=== PATIENT | female | born 1955 | race Caucasian/White ===

== ENCOUNTER 2021-04-13 15:47 | Outpatient (CLI) | payer MEDICARE, OTHER, SELFPAY ==
--- NOTE | ~2021-04-13 | MR_ITS ---
EXAMINATION: MR lumbar spine wo con DATE: 04/13/2021 16:23 INDICATION: Lumbar radiculopathy. TECHNIQUE: Magnetic resonance imaging (MRI) of the lumbar spine was performed without intravenous con trast. Sequences included sagittal T2-weighted FSE, sagittal T2-weighted FS FSE, sagittal T1-weighted FSE, and axial T2-weighted FSE. COMPARISON: None FINDINGS: There is 5 mm anterolisthesis of L4 on L5. Vertebral body heights are normal. There is conrad rely decreased disc height at L1-L5 and L5-S1 with endplate remodeling. There is hypertrophy of the l igamentum flavum at the disc levels at L1-L2, L3-L4, L4-L5, and L5-S1. The distal spinal cord signal intensity is normal. The conus medullaris is at L1. There are cysts in left kidney measuring up to 2. 4 cm. The following disc levels are specifically discussed: L1-L2: The disc does not extend beyond the endplate margin. There is severe right and moderate left f acet joint osteoarthritis. There is no neural foraminal stenosis. There is no central canal stenosis. L2-L3: The disc does not extend beyond the endplate margin. There is moderate bilateral facet joint o steoarthritis. There is no neural foraminal stenosis. There is no central canal stenosis. L3-L4: The disc is bulging. There is moderate bilateral facet joint osteoarthritis. There is mild payal ateral neural foraminal stenosis. There is no central canal stenosis. L4-L5: The disc is bulging and has an annular fissure. There is severe bilateral facet joint osteoart hritis. There is moderate bilateral neural foraminal stenosis. There is severe central canal stenosis . L5-S1: The disc is bulging and has an annular fissure. There is severe right and moderate left facet joint osteoarthritis. There is moderate bilateral neural foraminal stenosis. There is mild central ca nal stenosis. IMPRESSION: 1. Severe lower lumbar spondylosis. Reviewed, dictated and finalized at location A.
== END 2021-04-13 15:48 | disposition home or self-care (01) ==
PROVIDERS: PCP Family Medicine; Visit Provider Nurse Practitioner Adult Health
DX: M54.16 Radiculopathy, lumbar region (principal); M47.816 Spondylosis without myelopathy or radiculopathy, lumbar region
CPT/HCPCS: 72148

== ENCOUNTER 2022-04-30 16:52 | Outpatient (CLI) | payer MEDICARE, SELFPAY ==
--- NOTE | ~2022-04-30 | US_ITS ---
EXAMINATION:US venous doppler LE LT INDICATION:Leg edema and redness TECHNIQUE: Multiple grayscale, color flow and Doppler images of the left lower extremity deep venous systems were obtained and reviewed. COMPARISON:No prior studies FINDINGS: The common femoral, superficial femoral and popliteal veins demonstrate normal respiratory variation, augmentation and compressibility. Color flow is also seen within the posterior tibial, pe roneal, greater saphenous and profunda veins. IMPRESSION: 1: No lower extremity deep venous thrombosis. Reviewed, dictated and finalized at location A.
== END 2022-04-30 16:53 | disposition home or self-care (01) ==
PROVIDERS: PCP Family Medicine; Visit Provider Physician Assistant Medical
DX: M79.89 Other specified soft tissue disorders (principal)
CPT/HCPCS: 93971

== ENCOUNTER 2022-11-11 12:04 | Outpatient (CLI) | payer MEDICARE, SELFPAY ==
--- NOTE | ~2022-11-11 | XR_ITS ---
Left foot Technique: AP, oblique, and lateral views were obtained. Clinical History: Pain Findings: There is a traumatic, oblique, minimally displaced fracture of the distal fifth metatarsal shaft. No intra-articular extension. Joint spaces are preserved without erosive or degenerative cotton e. Soft tissues are unremarkable. Impression: Traumatic, oblique, minimally displaced fracture of the distal fifth metatarsal shaft. Reviewed, dictated and finalized at location . ERGARTNER Impression: Traumatic, oblique, minimally displaced fracture of the distal fifth metatarsal shaft.
--- NOTE | ~2022-11-11 | XR_ITS ---
EXAMINATION: XR knee RT min 4V DATE: 11/11/2022 12:40 INDICATION: Right knee pain. TECHNIQUE: 4 views of right knee were obtained. COMPARISON: None. FINDINGS: There is a depression fracture of lateral tibial plateau laterally involving approximately 1/5 of the articular surface with up to 2 mm depression of the articular surface. There is mild trico mpartmental osteoarthritis. There is a small knee joint effusion. IMPRESSION: 1. Lateral tibial plateau fracture. 2. Mild right knee osteoarthritis. 3. Small right knee joint effusion. Reviewed, dictated and finalized at location A. 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
== END 2022-11-11 12:05 | disposition home or self-care (01) ==
PROVIDERS: PCP Family Medicine; Visit Provider Physician Assistant
DX: S92.352A Displaced fracture of fifth metatarsal bone, left foot, initial encounter for closed fracture (principal); S82.141A Displaced bicondylar fracture of right tibia, initial encounter for closed fracture; M17.11 Unilateral primary osteoarthritis, right knee; M25.461 Effusion, right knee; X58.XXXA Exposure to other specified factors, initial encounter
CPT/HCPCS: 73564; 73630

== ENCOUNTER → 2023-08-05 11:05 | Outpatient (CLI) | payer MEDICARE, SELFPAY ==
--- NOTE | ~2023-08-05 | DEXA_ITS ---
Bone Density Report Name: ANMOL GUPTA Age: 67 Sex: Female Ethnicity: White Date of : 1955 Indication: postmenopausal; screening for osteoporosis; height loss; prior fracture; Referring Provider: XIMENA DIAMOND Study: Bone densitometry was performed. Exam Date: August 05, 2023 Accession number: [id number] Bone Density: Region BMD T-score Z-score Classification AP Spine (L1-L4) 0.983 -0.6 1.5 Normal Femoral Neck (Left) 0.614 -2.1 -0.3 Osteopenia Total Hip (Left) 0.664 -2.3 -0.8 Osteopenia Femoral Neck (Right) 0.590 -2.3 -0.6 Osteopenia Total Hip (Right) 0.665 -2.3 -0.8 Osteopenia Total Hip Mean 0.665 -2.3 -0.8 Osteopenia World Health Organization criteria for BMD impression classify patients as: Normal (T-score at or above -1.0), Osteopenia (T-score between -1.0 and -2.5), or Osteoporosis (T-score at or below -2.5). 10-year Fracture Risk(1): Major Osteoporotic Fracture 22% Hip Fracture 7.2% Reported Risk Factors: [place] (), Neck BMD=0.590, BMI=25.9, previous fracture, smoking (1) FRAX(R) Version 3.08. Fracture probability calculated for an untreated patient. Fracture probability may be lower if the patient has received treatment. Clinical Information Provided by Patient: Has had a low trauma fracture Smokes Patient maximum height was 70.5 Menopause Age: 47 No regular weight bearing exercise Does not regularly consume dairy products Drinks caffeinated beverages Onset of menses at age 13 Number of children 2 Impression: The patient has low bone mass, based on the Left Total Hip T-score. The patient has an estimated ten-year risk of hip fracture of 7.2% and an estimated ten-year risk of major fracture of 22%, based on the WHO FRAX algorithm. The patient has risk factors, including: smoking, previous fracture. Discussion: BONE DENSITY IS LOW AT ONE OR MORE SKELETAL SITES. THE PATIENT'S BMD AND CLINICAL RISK FACTORS CONTRIBUTE TO THIS PATIENT'S HIGH RISK OF FRACTURE. This patient's lowest T-score is low at one or more skeletal sites. It meets the World Health Organization's (WHO) criteria for ?low bone mass? (T-score between -1.0 and -2.5). The patient's 10-year risk of hip fracture and 10 year risk of a major osteoporotic fracture as calculated by FRAX exceeds the threshold where pharmacological therapy is recommended by the National Osteoporosis Foundation (NOF). However, all treatment decisions require clinical judgment and consideration of individual patient factors, including patient preferences, comorbidities, previous drug use, risk factors not captured in the FRAX model (e.g., frailty, falls, vitamin D deficiency, increased bone turnover, interval significant decline in bone density) and possible under or overestimation of fracture risk by FRAX. The patient should follow a healthful lifestyle (good nutrition with adequate calcium and vitamin D, and ap
== END ==
PROVIDERS: PCP Physician Assistant; Visit Provider Physician Assistant
DX: Z78.0 Asymptomatic menopausal state (principal); M85.88 Other specified disorders of bone density and structure, other site
CPT/HCPCS: 77080

== ENCOUNTER 2023-08-28 10:39 | Outpatient (CLI) | payer MEDICARE, SELFPAY ==
--- NOTE | ~2023-08-28 | US_ITS ---
Duplex Sonography of the left extremity: Indication: Swelling Findings: Sagittal and transverse B-mode images as well as color-flow imaging were performed on the l eft femoral and popliteal veins. B-mode examination was done without and with compression in the tra nsverse plane. There is good visualization of the common femoral, proximal profunda femoral, superfi cial femoral, greater saphenous, and popliteal veins. Normal flow was seen on color-flow imaging. No rmal compressibility was demonstrated. Visualized calf veins are also patent. Impression: No evidence of deep vein thrombosis involving the left lower extremity. Reviewed, dictated and finalized at location M. GHT ROUTER Impression: No evidence of deep vein thrombosis involving the left lower extremity.
== END 2023-08-28 10:40 | disposition home or self-care (01) ==
PROVIDERS: PCP Family Medicine; Visit Provider Physician Assistant Medical
DX: R60.9 Edema, unspecified (principal)
CPT/HCPCS: 93971

== ENCOUNTER → 2023-10-24 13:28 | Outpatient (CLI) | payer MEDICARE, SELFPAY ==
--- NOTE | ~2023-10-24 | XR_ITS ---
XR foot LT 2V DATE: 10/24/2023 13:48 INDICATION: Foot pain. TECHNIQUE: AP and lateral views COMPARISON: 01/07/2023 left foot FINDINGS: There is a linear oblique fracture line noted posteriorly at the distal fifth metatarsal sh aft, with approximately 1.4 mm anterior displacement/cortical offset of the distal fragment. This is most likely residual deformity related to previous linear oblique fracture of the distal shaft presen t on 01/07/2023. Partial re--fracture at this site is not entirely excluded. Clinical correlation is a dvised. No other fracture or dislocation, periosteal reaction or bone destruction is evident. Mild plantar calcaneal enthesopathy. No associated periostitis or erosive change. IMPRESSION: Probable old residual fracture deformity at the distal fifth metatarsal shaft posteriorly ; recommend clinical correlation to exclude refracture at this site Reviewed, dictated and finalized at location B. [employer] TECHNICIAN IMPRESSION: Probable old residual fracture deformity at the distal fifth metata rsal shaft posteriorly; recommend clinical correlation to exclude refracture at this site
== END ==
PROVIDERS: PCP Family Medicine; Visit Provider Physician Assistant
DX: M79.672 Pain in left foot (principal)
CPT/HCPCS: 73620